=== PATIENT | female | born 1965 ===

== ENCOUNTER 2022-09-24 11:39 | Outpatient (CLI) | payer OTHER, SELFPAY ==
--- NOTE | 2022-09-24 10:15 | DI.RAD_ITS ---
Exam(s) XR HIP LT COMPLETE AP PELVIS EXAM: XR HIP LT COMPLETE AP PELVIS CLINICAL HISTORY: preop TECHNIQUE: COMPARISON: No exams were available for comparison FINDINGS: Two views were obtained. There is a total hip joint replacement position on the right. There is a t emplate ball overlying the field period There is moderate narrowing of the cartilaginous joint spaces of the left hip. There are moderate ma rginal osteophytes of the acetabulum and femoral head. No other significant bony abnormality seen. IMPRESSION: Moderate DJD left hip. RADIATION DOSE DELIVERED: Total DLP
== END 2022-09-24 11:40 | disposition home or self-care (01) ==
LOC: DIORS 11:39
PROVIDERS: Visit Provider Physician Assistant Surgical
DX: M16.12 Unilateral primary osteoarthritis, left hip (principal)
CPT/HCPCS: 73502

== ENCOUNTER 2022-10-08 02:11 | Outpatient (CLI) | payer OTHER, SELFPAY ==
--- NOTE | 2022-10-08 07:45 | DI.RAD_ITS ---
Exam(s) RF JOINT INJECTION FLUORO GUID EXAM: RF JOINT INJECTION FLUORO GUID CLINICAL HISTORY: L HIP INJ UNDER FLUORO, LT HIP PAIN, M25.552 TECHNIQUE: 2D and realtime digital imaging was performed. COMPARISON: No exams were available for comparison FINDINGS: Fluoroscopy was utilized by Dr. Soto during left hip injection. Hard copy confirms intra-articul ar injection. IMPRESSION: RADIATION DOSE DELIVERED: cliff Mcintyre=8.4 mGy Total DLP
--- NOTE | 2022-10-09 08:10 | W.PROCNOTE ---
Date of service: 10/08/22 Time of Service: 13:40 Procedure Note Date of procedure: 10/08/22 Procedure: Left Hip Injection with Fluoroscopic Guidance Surgeon/Proceduralist/Physician: Leodan Soto Procedure Diagnosis: Left Hip Osteoarthritis Procedure Indications: Chantelle has had persistent pain of the LEFT hip and groin. Noninvasive measures have been tried. To serve as both diagnostic and therapeutic, an injection under fluoroscopy was recommended. I had discussed the risks of the procedure and the patient elected to proceed. Procedure Description: Chantelle was greeted in the flouroscopy room. The correct side was identified and the consent was reviewed with the patient and signed. The patient was then placed in the supine position on the fluoroscopy table. The LEFT hip was then prepped with Chloraprep. The anterolateral injection starting point was identiifed by bony landmarks and fluoroscopy. The skin and soft tissue in the tract of the injection was anesthetized with 1% Lidocaine. A spinal needle was then inserted deep into the hip joint at the level of the lateral femoral neck under fluoroscopic guidance. A small amount of Omnipaque solution was injected to confirm intraarticular placement. Once confirmed, the hip was injected with 5cc of 0.5% Bupivicaine and 80mg of Depo-Medrol. A bandaid was placed on the injection site. The patient tolerated the procedure well.
== END 2022-10-08 02:31 ==
LOC: DI 02:12
PROVIDERS: Visit Provider Student in an Organized Health Care Education/Training Program
DX: M25.552 Pain in left hip (principal)
CPT/HCPCS: 20610; 77002

== ENCOUNTER 2022-12-03 14:54 | Outpatient (REF) | payer OTHER, SELFPAY ==
--- NOTE | 2022-12-03 14:30 | TONG_PTH ---
PATIENT: Chantelle Hogan LOC: [facility] U#:[id number] AGE/SX: 57/F ROOM: RE12/03/[address]: Hortencia Lozano : 1965 BED: DIS: 12/03/2022 SPEC #: [id number] RECD: 12/03/22 18:12 STATUS: ALFONSO REQ #: [id number] [place]: 12/03/22 14:[address]: Hortencia Lozano DEPT: Surgical Specimen RECD BY: Jayla Bales ENTERED: 12/03/22 18:13 SP TYPE: JYOTHI SHRESTHA DR: Maylin Michaels Tissues: 1 - TONGUE BIOPSY Procedures: GROSS AND MICRO LEVEL 4 Comments: [id number]
== END 2022-12-03 14:55 | disposition home or self-care (01) ==
LOC: LBN 14:54
PROVIDERS: PCP Nurse Practitioner Family; Visit Provider Registered Nurse Maternal Newborn
DX: B37.0 Candidal stomatitis (principal)
CPT/HCPCS: 88305

== ENCOUNTER 2023-01-01 10:52 | Outpatient (CLI) | payer OTHER, SELFPAY ==
--- NOTE | 2023-01-01 10:45 | DI.RAD_ITS ---
Exam(s) XR ELBOW RT COMPLETE EXAM: XR ELBOW RT COMPLETE CLINICAL HISTORY: R elbow fx. TECHNIQUE: 2D digital imaging was performed. Three views. COMPARISON: DX Elbow RT from 12/27/2022 FINDINGS: A joint effusion is seen. There is a subacute fracture of the radial head with 1-2 millimeters of se paration at the articular surface. There is a question additional tiny fracture fragment at the tip of the coronoid process of the ulna. DATA REPOSITORY: RADIATION DOSE DELIVERED:
== END 2023-01-01 10:53 | disposition home or self-care (01) ==
LOC: DIORS 10:52
PROVIDERS: PCP Nurse Practitioner Family; Referring Provider Nurse Practitioner Family; Visit Provider Physician Assistant
DX: M25.421 Effusion, right elbow; S52.121A Displaced fracture of head of right radius, initial encounter for closed fracture
CPT/HCPCS: 73080

== ENCOUNTER 2023-01-15 12:33 | Outpatient (CLI) | payer OTHER, SELFPAY ==
--- NOTE | 2023-01-15 10:15 | DI.RAD_ITS ---
Exam(s) XR ELBOW RT COMPLETE EXAM: XR ELBOW RT COMPLETE CLINICAL HISTORY: F/U R RADIAL HEAD FX. TECHNIQUE: 2D digital imaging was performed of the left elbow. Four images were obtained. AP, late ral and oblique views were obtained. COMPARISON: CR XR ELBOW RT COMPLETE from 01/01/2023 FINDINGS: BONES: There has been no change in alignment of the radial head fracture. No bony destructive lesion is seen. The tiny density at the tip of the coronoid process is unchanged. JOINTS: The elbow is normally aligned. There is a small joint effusion. SOFT TISSUE: Normal. IMPRESSION: Stable radial head fracture. DATA REPOSITORY: RADIATION DOSE DELIVERED:
== END 2023-01-15 12:34 | disposition home or self-care (01) ==
LOC: DIORS 07-06 12:33
PROVIDERS: PCP Nurse Practitioner Family; Visit Provider Physician Assistant
DX: S52.121D Displaced fracture of head of right radius, subsequent encounter for closed fracture with routine healing (principal); X58.XXXD Exposure to other specified factors, subsequent encounter
CPT/HCPCS: 73080

== ENCOUNTER 2023-02-25 11:28 | Outpatient (CLI) | payer OTHER, SELFPAY ==
--- NOTE | 2023-02-25 11:15 | DI.RAD_ITS ---
Exam(s) XR ELBOW RT COMPLETE EXAM: XR ELBOW RT COMPLETE INDICATION: f/u fx. COMPARISON: CR XR ELBOW RT COMPLETE from 01/15/2023 TECHNIQUE: 2D digital imaging was performed. Three views. FINDINGS: There has been no change in the alignment of the radial head fracture which shows some increased heal ing compared with the prior exam. A small joint effusion remains present. DATA REPOSITORY: RADIATION DOSE DELIVERED:
== END 2023-02-25 11:29 | disposition home or self-care (01) ==
LOC: DIORS 11:28
PROVIDERS: PCP Nurse Practitioner Family; Referring Provider Nurse Practitioner Family; Visit Provider Physician Assistant
DX: S52.121A Displaced fracture of head of right radius, initial encounter for closed fracture (principal); W19.XXXA Unspecified fall, initial encounter; M25.421 Effusion, right elbow
CPT/HCPCS: 73080

== ENCOUNTER 2023-04-01 03:04 | Outpatient (CLI) | payer OTHER, SELFPAY ==
[2023-04-01 15:25] LABS: HCT 42.1 % (36.0-46.0); HGB 13.9 g/dL (11.2-15.7); MCH 30.3 pg (27.0-33.0); MCV 92 fL (80-95); MPV 9.2 fL (8.0-11.0); Platelet Count 337 10^3/uL (130-400); RBC 4.59 10^6/uL (3.93-5.22); RDW 11.6 % (11.7-14.6); RDW-SD 39.2 fL; WBC 7.86 10^3/uL (4.4-10.8)
[2023-04-01 15:58] LABS: Anion Gap 6.4 mmol/L (3-11); BUN 18 mg/dL (7-18); CO2 30.6 mmol/L (21.0-32.0); CREATININE 0.8 mg/dL (0.55-1.02); Calcium 10.1 mg/dL (8.5-10.1); Chloride 104 mmol/L (98-107); Estimated GFR 84.82 (mL/min/1.73m2); Glucose 99 mg/dL (74-106); Potassium 3.8 mmol/L (3.5-5.1); Sodium 141 mmol/L (136-145)
== END 2023-04-01 03:05 | disposition home or self-care (01) ==
LOC: LBO 03:04
PROVIDERS: PCP Nurse Practitioner Family; Visit Provider Student in an Organized Health Care Education/Training Program
DX: M25.552 Pain in left hip (principal); M16.12 Unilateral primary osteoarthritis, left hip; Z01.818 Encounter for other preprocedural examination; Z01.812 Encounter for preprocedural laboratory examination
CPT/HCPCS: 36415; 80048; 85027

== ENCOUNTER 2023-04-01 14:20 | Outpatient (CLI) | payer OTHER, SELFPAY ==
--- NOTE | 2023-04-01 14:00 | DI.RAD_ITS ---
Exam(s) XR ELBOW RT COMPLETE EXAM: XR ELBOW RT COMPLETE CLINICAL HISTORY: F/U FRACTURE. TECHNIQUE: 2D digital imaging was performed of the left elbow. Three images were obtained. AP, lat eral and oblique views were obtained. COMPARISON: DX Elbow RT from 12/27/2022 CR XR ELBOW RT COMPLETE from 02/25/2023 FINDINGS: BONES: There has been no change in alignment of the radial head fracture. No new fractures identifie d. No bony destructive lesion is seen. JOINTS: The elbow is normally aligned. No joint effusion is seen. SOFT TISSUE: Normal. IMPRESSION: Stable radial head fracture. DATA REPOSITORY: RADIATION DOSE DELIVERED:
== END 2023-04-01 14:21 | disposition home or self-care (01) ==
LOC: DIORS 14:21
PROVIDERS: PCP Nurse Practitioner Family; Referring Provider Nurse Practitioner Family; Visit Provider Physician Assistant
DX: S52.121A Displaced fracture of head of right radius, initial encounter for closed fracture (principal); X58.XXXA Exposure to other specified factors, initial encounter
CPT/HCPCS: 73080

== ENCOUNTER 2023-04-07 05:55 | Day surgery (SDC) | payer OTHER, SELFPAY ==
[2023-04-07] VITALS (12 sets, daily range): BP systolic 100–134; BP diastolic 63–94; PULSE 60–79; RESP 14–20; TEMP 36–36.6; O2SAT 97–100; BMI 27.1
[2023-04-07] MEDS: Lactated Ringers 1,000 ML 80 ML IV (06:19)
[2023-04-07] MEDS: Celecoxib 200 MG CAP 400 MG PO (06:19)
[2023-04-07] MEDS: Acetaminophen 500 MG TAB 1000 MG PO (06:19)
--- NOTE | 2023-04-07 06:54 | W.ANESPRE ---
General Info Date of Service Date Performed: 04/07/23 Height: 5 ft 1 in Weight: 65.2 kg Body Mass Index (BMI): 27.1 Surgical Procedure: Operation Date: 04/07/23 07:50 Proposed Procedure Side Surgeon p Hip Total Hip Anterior, Corail 5w or 125 Deg. Neck Left Leodan Soto MD Meds Allergies and Home Medications Allergies Allergy/AdvReac Type Severity Reaction Status Date / Time No Known Allergies Allergy Verified 04/07/23 06:03 Home Medication Medication Instructions Recorded cyclobenzaprine 10 mg tablet 10 mg PO HS PRN 08/19/22 gabapentin 100 mg capsule 100 mg PO DAILY 08/19/22 acetaminophen 325 mg tablet 325 mg PO ONCE PRN 09/24/22 (Tylenol) naproxen sodium 220 mg capsule 220 mg PO BID PRN 04/01/23 Current Visit Medications: Current Medications Generic Name Dose Route Start Last Admin Trade Name Freq PRN Reason Stop Dose Admin Acetaminophen 1,000 mg 04/07/23 06:00 04/07/23 06:19 Acetaminophen 500 Mg Tab PO 04/07/23 16:00 1,000 mg PREOP JASPER Administration Celecoxib 400 mg 04/07/23 06:00 04/07/23 06:19 Celecoxib 200 Mg Cap PO 04/07/23 16:00 400 mg PREOP JASPER Administration Tranexamic Acid 1,000 mg/ 60 mls @ 360 mls/hr 04/07/23 06:00 Sodium Chloride IV 04/07/23 16:00 PREOP JASPER Ringer's Solution 1,000 mls @ 80 mls/hr 04/07/23 06:00 04/07/23 06:19 IV 04/07/23 23:59 80 mls/hr INFUSION JASPER Administration Cefazolin Sodium/Dextrose 2 gm in 50 mls @ 100 mls/hr 04/07/23 06:00 Ancef Duplex IVPB 04/07/23 23:59 PREOP JASPER IV Miscellaneous Supplies 1 each 04/07/23 06:00 Iv Access IV 04/07/23 23:59 DIRECTED JASPER Sodium Chloride 0 ml 04/07/23 06:00 Normal Saline Flush 10 Ml Syr IV 04/07/23 23:59 PRN PRN Sodium Chloride 0 ml 04/07/23 06:00 Normal Saline 10 Ml Vial IJ 04/07/23 23:59 DIRECTED PRN Sterile Water 0 ml 04/07/23 06:00 Water,Injection,Sterile 10 Ml Vial IJ 04/07/23 23:59 DIRECTED PRN PFSH Active Problems Active Problems: Problem Status Onset Code Arthritis M19.90 Fibromyalgia M79.7 Degenerative joint disease of left hip M16.12 Tongue lesion K14.8 Right radial head fracture 12/27/22 S52.121A Medical History Medical History Back pain Depression Foot pain Hand pain Joint stiffness Leg pain Low back pain PTSD (post-traumatic stress disorder) Medical History Comments:: Pt. states she metabolizes medication very fast, pt. states when she came out of her last hip surgery she was in agonizing pain that she stated she had to be knocked back out, she is very anxious, and Surgical History Surgical History S/P foot surgery Great toe fusion (R) Status post hip surgery (R) WALKER Status post spinal surgery disc L4-L5 lamiectomy/Disectomy-no metal in situ Tobacco Smoking/Tobacco Use Status: Former Tobacco Use Substance Use Substance use: Never Substance use type: does not use Vital Signs and Lab Results Vital Signs Most Recent Vital Signs in EMR: Most Recent Vital Signs Temp Pulse Resp BP Pulse Ox 36.4 C L 73 20 133/94 H 100 04/07/23 06:00 04/07/23 06:00 04/07/23 06:00 04/07/23 06:00 04/07/23 06:00 Lab Results Blood Type / Crossmatch: No Data to Display Complete Blood Count: White Blood Count 7.86 10^3/uL (4.4-10.8) 04/01/23 15:00 Red Blood Count 4.59 10^6/uL (3.93-5.22) 04/01/23 15:00 Hemoglobin 13.9 g/dL (11.2-15.7) 04/01/23 15:00 Hematocrit 42.1 % (36.0-46.0) 04/01/23 15:00 Platelet Count 337 10^3/uL (130-400) 04/01/23 15:00 Complete Metabolic Panel: Sodium 141 mmol/L (136-145) 04/01/23 15:00 Potassium 3.8 mmol/L (3.5-5.1) 04/01/23 15:00 Chloride 104 mmol/L (98-107) 04/01/23 15:00 Carbon Dioxide 30.6 mmol/L (21.0-32.0) 04/01/23 15:00 BUN 18 mg/dL (7-18) 04/01/23 15:00 Creatinine 0.8 mg/dL (0.55-1.02) 04/01/23 15:00 Est GFR (CKD-EPI 2020) 84.82 (mL/min/1.73m2) 04/01/23 15:00 Calcium 10.1 mg/dL (8.5-10.1) 04/01/23 15:00 Glucose 99 mg/dL (74-106) 04/01/23 15:00 Liver Function Panel: No Data to Display Coagulation Panel: No Data to Display Cardiac Panel: No Data to Display Arterial Blood Gas: No Data to Display Venous Blood Gas: No Data to Display Pancreas Panel: No Data to Display Thyroid Panel: No Data to Display Infectious Disease: No Data to Display Blood Cultures: No Data to Display Toxicology Panel: No Data to Display Anesthesia Assessment and Plan Anesthesia History Personal History: Other Family History: No Family History of Anesthesia Complications Exercise Tolerance Exercise Tolerance: Metabolic Equivalents>4 Pertinent Negatives Pertinent Negatives: No Symptoms of GERD and Other (some nausea at present secondary to hip pain and npo status) Cardiac & Pulmonary Exam Cardiac Exam: Normal S1/S2 Heart Sounds Pulmonary Exam: Clear Bilateral Breath Sounds Implantable Cardiac Device Does patient have a Pacemaker or an ICD?: No Airway Exam Known Difficult Airway: No Mallampati Class: 2 Mouth Opening: Normal (> 3cm) Thyromental Distance: Less than 3 cm Neck Range of Motion: Full ROM Neck Circumference: Normal Teeth Condition: Normal Dentition ASA Classification ASA Score: ASA 2 Emergency Case?: No NPO Status NPO Status: NPO Clears >2 hours, Solids >8 hours and Unable to Assess Anesthesia Plan Resuscitation Status: Full Code Anesthesia Technique: Spinal Anesthesia Airway Planned: Natural Airway Monitors Used: Standard Monitors
[2023-04-07] MEDS: ceFAZolin 2 GM/50 ML BAG IVPB (07:37)
--- NOTE | 2023-04-07 08:41 | DI.RAD_ITS ---
Exam(s) XR HIP LT IN OR EXAM: XR HIP LT IN OR CLINICAL HISTORY: surgery. TECHNIQUE: 2D and realtime digital imaging was performed. COMPARISON: No exams were available for comparison FINDINGS: Fluoroscopy was provided in the OR for Dr. Soto. Hard copy images show placement of a hip prosth esis. The alignment appears satisfactory. Please see procedure note for details. Fluoro time: 30.8seconds RADIATION DOSE DELIVERED: cliff Mcintyre=3.06 mGy
--- NOTE | 2023-04-07 08:49 | ROE_ITS ---
Date of service: 04/07/23 Time of Service: 08:49 Operative Note Operative Note DATE OF PROCEDURE: 04/07/23 PRE-OP DIAGNOSIS: Left Hip Osteoarthritis POST-OP DIAGNOSIS: same PROCEDURE: Left Anterior Total Hip Arthroplasty with Intraoperative Navigation SURGEON: Leodan Soto ANESTHESIA TYPE: Spinal Refer to Anesthesia Record PATHOLOGY: none sent TOURNIQUET TIME: 0 COMPLICATIONS: None Patient was transported to: PACU Patient's condition: stable Implants: 1. Depuy [place] Acetabular Component, 48mm 2. Depuy Acetabular Liner, 29x55vz 3. Depuy Corail Short Neck Collared Femoral Stem, Size 12 4. Depuy Altrx Ceramic Femoral Head, Size 32+5mm Indications: I have seen Chantelle in clinic for symptoms of hip arthritis, confirmed with radiographic findings. She has exhausted nonoperative methods and was having significant limitations in daily function and desired better function and less pain. I discussed the technical details of a hip replacement. I explained the risks of the procedure to include, but not limited to, bleeding, infection, pain, stiffness, fracture, damage to nerves and vessels, damage to muscles and tendons, loosening, instability, leg length inequality, need for repeat procedure, blood clot and cardiopulmonary demise. Despite these risks, Chantelle elected to proceed. Findings: There was chondromalacia of the superior femoral head as well as the superior?lateral acetabulum Procedure Description: Chantelle was greeted in the preoperative holding area where the correct side was identified and marked. The consent was reviewed with the patient and signed. The history and physical was updated. All questions were answered. She was taken back to the operating room. A spinal anesthestic was then administered. The feet were wrapped with cast padding and Coban and then placed into the boot liners and then into the boots. Care was taken to protect the skin and make sure the heels were fully down and the boots were stable. The patient was then positioned onto the HANA table. Both legs were held in a neutral position. SCDs were applied. The patient was then slid down onto a peroneal post. Prophylactic antibiotics in the form of Cefazolin were adminis tered. 1g of Tranxemic Acid was given intravenously within 30 minutes of incision. The left leg was then prepped with Chloraprep and draped in a standard fashion. A second prep with Chloraprep was performed prior to placement of a shower-curtain type drape with Iodine impregnated skin protection. A timeout to confirm correct identity, side and site, procedure, allergies, anesthesia, and medical concerns was performed. An obliquely oriented incision was made starting lateral to the ASIS and running distal over the Tensor Fascia Chica (TFL) muscle belly toward the fibular head, approximately 10cm. The skin and soft tissue was dissected sharply, through Guero?s fascia, and to the fascia of the TFL. With the fascia and superior border of the IT band identified, the fascia was incised with a new knife just above any perforators from the IT band. The TFL muscle belly was bluntly dissected away from the fascia and moved laterally. The fat between TFL and rectus was identified to ensure the dissection was not within the TFL. Blunt dissection created space between abductors and the capsule and retractor was placed over the lateral femoral neck. The fibers of the rectus femoris tendon were identified and these were freed from the anterior capsule. A second cobra retractor was placed around the medial femoral neck. The TFL was further retracted laterally to show the deep fascia. Careful dissection through this layer identified three main crossing vessels of the lateral femoral circumflex. These were cauterized in multiple locations and then cut without any noticeable bleeding. The TFL was further released bluntly from the deep fascia to expose anterior hip capsule and fat The Lg orthopaedic retractor was then placed beneath the TFL and against sartorius and medial soft tissues to protect and retract the soft tissues. A T-capsulotomy was then performed starting at the superior lateral acetabulum and moving distally to the intertrochanteric ridge. These capsular flaps were tagged with a No. 1 Ethibond and elevated from within. The capsular flaps were released to the shoulder of the lateral neck and to the lesser trochanter to give excellent visualization of the proximal femur. A neck osteotomy was performed using an oscillating saw based on preoperative templates. This cut started in the shoulder and of the lateral neck and exited medially. The saw was at all times directed medially to avoid injury to the greater trochanter. Gross traction was applied to the leg and the osteotomy opened. The femoral head was removed with a corkscrew, making sure to protect the TFL on its exit. Traction was released after head removal. This was measured on the back table to determine the starting reamer size. Portions of the rectus obscuring visualization were minimally elevated off the superior acetabulum. An anterior retractor was placed over the anterior wall between capsule and labrum and attached to the Gripper retraction system. The femur was rotated to 90 degrees and medial capsule was fully released until the lesser trochanter was palpable and visible; the femur was returned to 30 degrees. A posterior retractor was placed similarly between capsule and labrum. This provided excellent visualization. The contents of the cotyloid fossa were removed with electrocautery and the labrum was removed with a knife. Acetabular reaming began with a 44mm reamer. This first reaming was directed anterior to posterior and medial to get down to the true floor. This was inspected and reamed until the true floor was reached. The anterior retractor was then released and entry and exit was provided by traction on the capsular flaps. I then reamed sequentially up to a 48mm reamer where good fit was obtained. The larger reamers were oriented based on anatomical reference of the anterior and lateral mckeon to ensure proper abduction and anteversion. Positioning and size was confirmed with the fluoroscopy. A 48mm Depuy [place] acetabular component was selected. The acetabulum was reamed around the periphery with the selected acetabular size to prevent a rim fit. The deep tissues were irrigated. The acetabular component was then impacted in a position of about 40-45 degrees of abduction and 15-20 degrees of anteversion, using the patient?s anatomy as the ultimate landmark. Fluoroscopy was used to confirm this. There was excellent die cutter operator of the acetabular component and the inserting handle was removed. The acetabular liner, Depuy [id number] polyethylene liner, was inserted and lined up with the tines of the acetabular component. There was no soft tissue interposition. The liner was then impacted into position and confirmed to be well-seated. A portion of the anabelle-articular cocktail was then injected around the acetabulum into the capsule and periosteum. This cocktail consisted of 123mg of Ropivacaine, 0.25mg of Epinephrine, 0.04mg of Clonidine, and 15mg of Ketorolac, diluted to 50cc. The leg was rotated to 120 degrees. Any remaining medial capsule was released until the lesser trochanter was easily palpable. A retractor was placed medially. The lateral capsule was further released into the shoulder to allow access to the greater trochanter. A Vizcaino retractor was placed over the greater trochanter which allowed the trochanter to flip in front of the capsule for excellent exposure. The leg was brought down into maximal extension and 20 degrees of adduction while ensuring there was no impingement on the acetabulum. Any remnant capsule within the trochanter was released. Piriformis and obturator externis were identified and protected. There was excellent access to the proximal femur. The lateral neck remnant was removed with a rongeur. A blunt canal probe was used to identify the canal and trajectory for later broaching. A box osteotome initiated the broach course. A small curved rasp and a curved curette were used to work laterally. Broaching then began with a size 8 Corail broach. This was inserted manually around the trochanter and into the canal before mallet blows. The broach was seated to a few millimeters below the cut level based on the neck cut and the preoperative template. Sequential broaching was continued with the Retidocse pneumatic broaching device until a tight fit was obtained with good rotational control of the femur. A trial standard 125 degree neck was inserted along with a +1 trial head. The leg was brought out of extension and adduction and then reduced with traction and internal rotation. The leg was stable anteriorly in a position of 30 degrees of extension and 90 degrees of external rotation. Fluoroscopy was used to ensure there was no fracture and the stem was seated well. Leg lengths were checked with an AP pelvis and pelvic reference points. [employer] navigation system was used to confirm appropriate positioning and leg length and offset. This undercorrected the leg length and overcorrect the offset, however, improved by going to a short neck option with the +5 head. Once content with the desired offset and leg lengths, the leg was brought back into extension, external rotation and adduction. The periosteum and surrounding tissue was injected with remaining portion of the anabelle-articular cocktail. The proximal femur was irrigated as well as the deep tissues. The Depuy Corail Short neck collared stem, size 12, was then manually inserted into the proximal femur making sure to control rotation. It was then malleted into position with light blows, giving breaks to allow bone expansion and decrease risk of fracture. The selected Depuy Altrx Ceramic Head, size 32+5mm, was then placed onto the clean and dry trunnion and secured with impaction onto the tapered fit. The leg was brought back out of extension and adduction and reduced with traction and internal rotation. Stability was confirmed with no shuck at 90 degrees of external rotation and 30 degrees of extension. No impingement throu gh range of motion arc. Final x-ray images were obtained with fluoroscopy to confirm adequate positioning and no intraoperative fracture. The deep tissues were thoroughly irrigated with Surgiphor, betadine solution. This was allowed to sit in the wound for 3 minutes before being thoroughly irrigated out with normal saline. The capsule was then reapproximated with the previously placed Ethibond sutures. The TFL fascia was finally closed with a No. 2 Stratafix, barbed suture. Deep tissues were then reapproximated with 0 Vicryl and a running 2-0 Vicryl. The skin was closed with a running 4-0 Monocryl in a subcuticular fashion. This was reinforced with skin glue. A Mepilex silver dressing was applied. At the end of the case, all counts were correct. Chantelle was transferred to the hospital bed without difficulty and suffering no apparent complication. Chantelle has a good prognosis. Physical therapy will start today and without restrictions, weight-bearing as tolerated. Aspirin 81mg BID will be used for DVT prophylaxis.
[2023-04-07] MEDS: fentaNYL 100 MCG/2 ML VIAL IVP ×2 (09:39→09:49)
--- NOTE | 2023-04-07 09:44 | W.PM.DSUDISC ---
Date of service: 04/07/23 Time of Service: 09:44 Discharge Plan Disposition Patient Disposition: Home Condition: Good Discharge Details Reason For Visit: L THR Attending Provider: Leodan Soto Primary Care Provider: Maylin Michaels Home Meds and New Rx's Prescriptions: New celecoxib 200 mg capsule 200 mg PO BID Qty: 60 0RF aspirin 81 mg tablet,delayed release (DR/EC) 81 mg PO BID Qty: 60 0RF acetaminophen 500 mg tablet 1,000 mg PO TID Qty: 90 3RF pantoprazole 40 mg tablet,delayed release (DR/EC) 40 mg PO DAILY Qty: 30 0RF dexamethasone 4 mg tablet 4 mg PO DAILY Qty: 2 0RF oxycodone 5 mg tablet 5 mg PO Q4H MDD 6 tabs PRN (Reason: pain) Qty: 20 0RF Continued gabapentin 100 mg capsule 100 mg PO DAILY cyclobenzaprine 10 mg tablet 10 mg PO HS PRN Discontinued naproxen sodium 220 mg capsule 220 mg PO BID PRN acetaminophen [Tylenol] 325 mg tablet 325 mg PO ONCE PRN Discharge Instructions Additional Instructions: Total Hip Discharge Instructions Activity: The most important activity is to walk. You should try to take short walks a few times a day. You have no restrictions on movement or positioning, but do not try to force what you do. You will find some stiffness and weakness with hip flexion (lifting your knee). Do not try to strengthen this too early, continue to practice walking and stairs and this will come. - Outpatient physical therapy can be helpful to help return you to a normal gait and improve your flexibility and strength. This can start around 2 weeks. For some patients, it?s not necessary. Usually this is determined at the time of discharge or at the first post-operative visit. - You should wear the CHERELLE hose on both legs for 2 weeks. Dressing: Keep the surgical dressing in place for at least one week. After the first week it may be removed and replace with light gauze and tape or nothing. It may get wet after 3 days but avoid soaking the dressing. If it gets wet, just lightly pat dry. It is important to always keep some gauze between skin folds, especially when you are sitting. Spend some time with the wound exposed when you are lying flat as the incision does wrinkle onto itself. Medications: - You should take Tylenol and an anti-inflammatory Celebrex as your primary pain control medications. If the Celebrex is too expensive or not covered, please call the office for another alternative (Advil/Ibuprofen or Naproxen/Aleve). - You have been prescribed a stronger pain medication Oxycodone for breakthrough pain, take as needed as prescribed. - You have also been prescribed a stomach acid reduction agent Pantoprozole to help reduce stomach acid and reflux. - You have also been prescribed Decadron to help with post-operative nausea and pain. You will take this for two days starting tomorrow. - You will be taking Aspirin 81mg twice a day for DVT prevention unless instructed otherwise. - If you have constipation you should take Colace or Miralax (both [id number]). It takes most people 3-4 days to have a bowel movement. Follow-up: 2 weeks If you have any acute concerns or questions, please do not hesitate to contact the office at [phone]. You may contact Dr. Soto with any questions after hours through the hospital at [phone] or on his cell phone at [phone]. Referrals: Leodan Soto MD [ [facility] STAFF PHYSICIAN] - Equipment/Supplies: Walker Activity:: Activity as Tolerated Shower/Bathe:: 72 hours Diet:: As Tolerated Discharge Orders Discharge Orders: Discharge Order (Routine); Ordered 04/07/23 Ordered By: Leodan Soto DS: Diagnosis Discharge Diagnosis (1) Degenerative joint disease of left hip: Status: Acute
[2023-04-07] MEDS: oxyCODONE 5 MG TAB PO (10:29)
[2023-04-07] MEDS: LORazepam 2 MG/ML VIAL 0.5 MG IVP ×3 (11:13→11:29)
[2023-04-07] MEDS: Normal Saline Flush 10 ML SYR (11:16)
[2023-04-07] MEDS: Normal Saline Flush 10 ML SYR IV (11:34)
--- NOTE | 2023-04-07 11:40 | W.ANESPOSTOP ---
Postoperative Evaluation Date, Time and Location Date Performed: 04/07/23 Time Performed: 11:41 Patient Location: Day Surgery Unit Vital Signs Most Recent Imported Vital Signs: Most Recent Vital Signs Temp Pulse Resp BP Pulse Ox 36.6 C 75 16 107/89 100 04/07/23 10:40 04/07/23 10:40 04/07/23 10:40 04/07/23 10:40 04/07/23 10:40 Pain Score Most Recent Pain Score: Most Recent Pain Score Pain Level 7 04/07/23 10:40 Assessment Mental Status: Awake (Alert & Oriented to Patient Baseline) Airway and Respiratory Function: Patent airway with normal (patient baseline) respiratory exam Cardiovascular Function: Hemodynamically Stable Hydration Status: Adequately Hydrated Nausea & Vomiting: No Nausea or Vomiting Pain: Pain is Moderate or Severe Postoperative Pain Management: Pain being addressed with medication Peripheral Nerve Block: Patient did not receive a nerve block
--- NOTE | 2023-04-07 15:27 | PT.INIE ---
Date of service: 04/07/23 Time of Service: 13:15 PT Notes Visit Reasons: L THR Physical Therapy Day Surgery Initial Evaluation Date: 04/07/2023 Referring Doctor: BENITO Issa PT Orders: PT CONSULT: S/P Ortho Surgery Precautions: WBAT on the L LE with AD. Patient Profile/Admitting Diagnosis: Chantelle is a 58-year-old female with degenerative joint disease of the L hip and is S/P left total hip arthroplasty on postoperative day 0. PMHX: Medical History?(Updated 01/01/23 @ 10:48 by BENITO Issa) Back pain Depression Foot pain Hand pain Joint stiffness Leg pain Low back pain PTSD (post-traumatic stress disorder) Surgical History?(Updated 08/19/22 @ 11:55 by Yara Leyva RN, RN) S/P foot surgery Status post hip surgery Status post spinal surgery disc Social History/Home Situation: Lives alone in a private home with 1-2 steps without rails. Daughter and daughter's family will be with patient for several days as she recovers. Patient is independent with all aspects of ADLs without AD. Equipment Owned/DME: None Subjective: Agreeable to PT consult. Denies headache, chest pain, and lightheadedness throughout session. Reports 4/10 pain in the left hip with movement and weightbearing. Objective: General Observation: Supine in bed. Ag over surgical incision. TEDs to be legs. Mental Status: Alert and oriented x4 Pain: 4/10 pain in the left hip with weightbearing ROM: Right Lower Extremity: Hip flexion WFL. Hip abduction WFL. Knee flexion WFL. Ankle dorsiflexion WFL. Ankle plantarflexion WFL. Left Lower Extremity: Hip flexion WFL. Hip abduction WFL. Knee flexion WFL. Ankle dorsiflexion WFL. Ankle plantarflexion WFL. Strength: Right Lower Extremity: Hip flexors 5/5. Hip abductors 5/5. Knee flexors 5/5. Knee extensors 5/5. Ankle dorsiflexors 5/5. Ankle plantarflexors 5/5. Left Lower Extremity:Hip flexors 4-/5. Hip abductors 4-/5. Knee flexors 5/5. Knee extensors 4-/5. Ankle dorsiflexors 5/5. Ankle plantarflexors 5/5. Sensation: Intact as to pain and light pressure in bilateral lower extremities Bed Mobility/Transfers: Supine to sit stand by assist Sit to stand conatct guard assist Stand to sit standby assist Bed to chair contact-guard assist Gait: Tolerated level surface ambulation of 150 feet using front-wheeled walker with step through gait pattern requiring standby assist. No shortness of breath. No loss of balance. Stairs: Ascended and descended 6 x 4 inch steps and 4 x 6 inch steps while holding onto 1 rail and on using a single-point cane with the other hand using step to gait pattern with contact-guard assist. Balance: Static Sitting: Normal Dynamic Sitting: Normal Static Standing: Fair Dynamic Standing: Fair Special Tests: Mobility Limitations Standardized Measure [facility]-PAC 6 clicks Basic Mobility Inpatient Short Form: Raw Score: 23 CMS Score: 11% deficit Informed Consent/Education: Patient instructed in purpose of PT consult. Packet containing WALKER exercise protocol has been given to patient. Education and training on initial set of exercises that can be done at home have been completed with patient. THERA EX: Supine gluteal sets with 5 SH x10 Supine heel slides x10 Supine ankle pumps x10 Seated marches x 10 Assessment: Patient requires the use of a front wheel walker to maximize independence and reduce fall risk. Patient presents with clinical signs and symptoms consistent with current/admitting diagnoses that have resulted to mobility limitations, gait instability, generalized weakness, and impairment of motor control as demonstrated by the following impairment level findings: 1. Decreased strength to left hip major muscle groups 2. Impaired standing balance Impairments are contributing to the following functional limitations: 1. Inability to safely ambulate without assistive device 2. Increase completion time for mobility ADL performance 3. Increased fall risk Patient is assessed as a [id number] moderate complexity based on the following: History: [id number] with impairment level findings, functional limitations, and past medical history as indicated above Examination: Demonstrable impairment in strength, balance, and mobility level with underlying impairments and functional limitations as documented above Presentation: Evolving Decision Makin moderate complexity Goals: N/A. PT evaluation and 1-2 treatment sessions only for functional mobility training using recommended AD and for HEP instruction. Plan of Care/Treatment Plan: N/A. PT evaluation and 1-2 treatment session only for functional mobility training using recommended AD and for HEP instruction. DISCHARGE RECOMMENDATIONS: Home when medically cleared by orthopedic surgeon. Recommend outpatient PT services in order to optimize functional mobility outcomes and facilitate return to independent community ambulation without an assistive device. TREATMENT CODE/TIME: 86897 x 20 minutes, 66559 x 17 minutes beginning at 13:15 PM. Thank you for the opportunity to participate in the care of this patient. Teri Mauricio PT, DPT, CLT [facility] [place], [place]
== END 2023-04-07 05:56 | disposition home or self-care (01) ==
PROVIDERS: PCP Nurse Practitioner Family; Visit Provider Student in an Organized Health Care Education/Training Program
PROC: (CPT 27130; principal; 2023-04-07 07:30)
DX: M16.12 Unilateral primary osteoarthritis, left hip (principal)
CPT/HCPCS: 27130; 20985; 97162; 97530; 73501; J0690; J1100; J2001; J2060; J2250; J2405; J3010

== ENCOUNTER 2023-04-22 09:37 | Outpatient (CLI) | payer OTHER, SELFPAY ==
--- NOTE | 2023-04-22 09:22 | DI.RAD_ITS ---
Exam(s) XR HIP LT COMPLETE AP PELVIS EXAM: XR HIP LT COMPLETE AP PELVIS CLINICAL HISTORY: 1st post op L WALKER. TECHNIQUE: 2D digital imaging was performed. COMPARISON: CR XR HIP LT COMPLETE AP PELVIS from 09/24/2022 FINDINGS: Two views There has been interval placement of a left hip prosthesis which appears to be in satisfactory positi on alignment. No loosening. No fractures evident. Opposite-right hip prosthesis also appears stabl e. 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 IMPRESSION: Satisfactory appearance of the bilateral hip prostheses. DATA REPOSITORY: RADIATION DOSE DELIVERED:
== END 2023-04-22 09:38 | disposition home or self-care (01) ==
LOC: DIORS 09:37
PROVIDERS: PCP Nurse Practitioner Family; Referring Provider Nurse Practitioner Family; Visit Provider Physician Assistant
DX: Z96.642 Presence of left artificial hip joint (principal); Z47.1 Aftercare following joint replacement surgery
CPT/HCPCS: 73502